=== PATIENT | male | born 1990 | race Caucasian/White ===

== ENCOUNTER 2016-12-28 17:04 | Emergency (ER) | payer OTHER ==
[~2016-12-28] VITALS: Ht 185.4 cm; Wt 77.1 kg
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
[2016-12-28] MEDS ORDERED: SILVER SULFADIAZINE CREAM 25 GM TUBE ONE (17:13)
[2016-12-28] MEDS ORDERED: MORPHINE SULFATE INJ 4 MG/ML DISP.SYRIN ONE (17:19)
[2016-12-28] MEDS ORDERED: ONDANSETRON 4 MG TAB.RAPDIS ONE (17:20)
[2016-12-28] MEDS ORDERED: ONDANSETRON 4 MG TAB.RAPDIS SL ONE (17:30)
[2016-12-28] MEDS ORDERED: SILVER SULFADIAZINE CREAM 25 GM TUBE TP ONE (17:30)
[2016-12-28] MEDS ORDERED: MORPHINE SULFATE INJ 2 MG/ML DISP.SYRIN IM ONE (17:30)
--- NOTE | 2016-12-28 17:53 | NUR ---
WOUND CARE PROVIDED. D/C IN STABLE CONDITION.
[2016-12-28 17:56] VITALS: BP 132/84
== END 2016-12-28 17:59 | disposition home or self-care (01) ==
LOC: ER 17:05
DX: T23.251A Burn of second degree of right palm, initial encounter (principal); Z90.89 Acquired absence of other organs; X19.XXXA Contact with other heat and hot substances, initial encounter; Y93.89 Activity, other specified; Y92.89 Other specified places as the place of occurrence of the external cause; Y99.9 Unspecified external cause status
CPT/HCPCS: 16020; 96372; 99284; A4606; J2270; Q0162; Z7610

== ENCOUNTER 2016-12-29 13:30 | Emergency (ER) | payer OTHER ==
[~2016-12-29] VITALS: Ht 188 cm; Wt 77.1 kg
[2016-12-29 13:46] VITALS: BP 135/67
[2016-12-29] MEDS ORDERED: SILVER SULFADIAZINE CREAM 25 GM TUBE TP ONE (16:00)
[2016-12-29] MEDS ORDERED: SILVER SULFADIAZINE CREAM 25 GM TUBE ONE (16:01)
== END 2016-12-29 16:59 | disposition home or self-care (01) ==
LOC: ER 13:32
DX: H66.92 Otitis media, unspecified, left ear (principal); L23.9 Allergic contact dermatitis, unspecified cause; Z90.89 Acquired absence of other organs
CPT/HCPCS: 99283; A4606; Z7610